=== PATIENT | female | born 1995 | race African-American/Black ===

== ENCOUNTER 2022-09-21 23:16 | Emergency (ER) | payer BC | END 2022-09-21 23:30 | disposition left against medical advice (07) | LOC: ER 23:16 | DX: Z53.21 Procedure and treatment not carried out due to patient leaving prior to being seen by health care provider (principal) ==

== ENCOUNTER 2022-09-22 03:07 | Emergency (ER) | payer SELFPAY ==
[~2022-09-22] VITALS: Ht 162.6 cm; Wt 48.6 kg
[2022-09-22 04:05] VITALS: BP 105/60
== END 2022-09-22 04:05 | disposition home or self-care (01) ==
LOC: ER 03:07
DX: B34.9 Viral infection, unspecified (principal)
CPT/HCPCS: 99281